=== PATIENT | male | born 1950 | race Caucasian/White ===

== ENCOUNTER → 2017-03-01 | Outpatient (CLI) | payer OTHER ==
--- NOTE | 2017-03-01 15:16 | Diagnostic Imaging Report ---
PROCEDURE: CT urinary tract, rule out kidney stone. TECHNIQUE: Multiple contiguous axial images were obtained through the abdomen and pelvis without the use of intravenous contrast. INDICATION: Abdominal pain. Right flank pain. FINDINGS: The lung bases demonstrate no significant abnormality. The liver, the gallbladder, the spleen, the pancreas and adrenal glands appear unremarkable. The kidneys demonstrate bilateral cystic areas near the renal pelvis on both sides suggestive of parapelvic cysts. No urinary tract stones are seen. Calcifications in the pelvis appears to relate to phleboliths. The abdominal aorta is normal in caliber. No para-aortic significantly enlarged lymph node is seen. There is a tiny fat-containing umbilical hernia. The appendix is normal. There is no bowel obstruction. No inflammatory changes seen. A few colonic diverticula are noted. The urinary bladder demonstrates mild nonspecific wall thickening. The prostate has central calcifications in it with no significant enlargement of its outer contour. The osseous structures demonstrate degenerative changes and suggestion of pars defects at the L5 level. IMPRESSION: 1. No urinary tract stones. Cystic lesions near the renal pelvis more prominent on the left side are favored to be related to parapelvic cysts rather than hydronephrosis. This can be confirmed with a contrast-enhanced study. 2. Tiny fat-containing umbilical hernia. 3. Mild diverticulosis. No diverticulitis. 4. Nonspecific mild thickening in the urinary bladder wall. Consider possibility of cystitis. 5. Suggestion of bilateral L5 pars defects. Dictated by: Dictated on workstation # [id number]
== END ==
LOC: RAD 13:25
PROVIDERS: ATTEND Internal Medicine
DX: K42.9 Umbilical hernia without obstruction or gangrene (principal); N32.9 Bladder disorder, unspecified; R93.8 Abnormal findings on diagnostic imaging of other specified body structures
CPT/HCPCS: 74176

== ENCOUNTER 2018-08-30 10:14 | Outpatient (CLI) | payer OTHER ==
[~2018-08-30] VITALS: Ht 182.9 cm; Wt 115.7 kg
[~2018-08-30 10:14] MED LIST: FLUT1DIS26 IH
== END 2018-08-30 11:55 ==
LOC: PREOP 10:14
PROVIDERS: ATTEND Podiatrist Foot & Ankle Surgery
DX: Z01.818 Encounter for other preprocedural examination (principal)

== ENCOUNTER 2018-09-01 06:10 | Day surgery (SDC) | payer MEDICARE, OTHER ==
[~2018-09-01] VITALS: Ht 182.9 cm; Wt 115.7 kg
--- OUTSIDE RECORDS SUMMARY | 2018-09-01 06:14 | XMS REPORT | Continuity of Care Document ---
Author Author [facility] Address Unknown Phone Unavailable Allergies There is no data. Medications There is no data. Problems Date Dx Coded Attending Type Code Diagnosis Diagnosed By 01/31/2014 CASSANDRA ALVAREZ DDS V72.2 DENTAL EXAMINATION Procedures Code Description Performed By Performed On D0140 LIMIT ORAL EVAL PROBLM FOCUS 01/31/2014 D0220 INTRAORAL PERIAPICAL FIRST F 01/31/2014 D7140 EXTRACTION ERUPTED TOOTH/ EXR 01/31/2014 Results There is no data. Encounters ACCT No. Visit Date/Time Discharge Status Pt. Type Provider Facility Loc./Unit Complaint [id number] 01/31/2014 13:06:00 01/31/2014 23:59:59 CLS Outpatient CASSANDRA ALVAREZ DDS
[2018-09-01] MEDS ORDERED: ceFAZolin INJECTION 1,000 MG in NS (IVPB) 50 ML IV ONE (06:30)
[2018-09-01 06:40] VITALS: BP 140/98
[2018-09-01] MEDS: LACTATED RINGERS 1,000 ML IV PRN ×2 (06:50→08:54)
[2018-09-01] MEDS ORDERED: ONDANSETRON 4 MG/2 ML (SDV) Z0FRAN IV ONE (07:00)
[2018-09-01] MEDS ORDERED: FAMOTIDINE 20MG/2ML IV (PEPCID) IV ONE (07:00)
[2018-09-01] MEDS ORDERED: SCOPOLAMINE 1.5 MG (TRANSDERM-SCOP) PATCH TOP ONE (07:00)
[2018-09-01] MEDS ORDERED: ONDANSETRON 4 MG/2 ML (SDV) Z0FRAN ONE ×2 (07:05→08:32)
[2018-09-01] MEDS ORDERED: FAMOTIDINE 20MG/2ML IV (PEPCID) ONE (07:05)
[2018-09-01] MEDS ORDERED: SCOPOLAMINE 1.5 MG (TRANSDERM-SCOP) PATCH ONE (07:05)
[2018-09-01] MEDS ORDERED: BUPIVACAINE 0.5% 30 ML (SENSORCAINE) VIAL ONE (07:14)
--- NOTE | 2018-09-01 07:23 | Progress Note-Pre Operative ---
Pre-Operative Progress Note H&P Reviewed The H&P was reviewed, patient examined and no changes noted. Date Seen by Provider: Sep 01, 2018 Time Seen by Provider: 07:22 Date H&P Reviewed: Sep 01, 2018 Time H&P Reviewed: 07:22 Pre-Operative Diagnosis: Hallux Valgus, Hypertrophic 2nd metatarsal, Hammertoe 2nd, Right foot GAYATHRI MCFARLAND DPM Sep 01, 2018 07:23
[2018-09-01] MEDS ORDERED: fentaNYL INJECTION 100 MCG/2 ML AMP ONE ×3 (08:00→10:18)
[2018-09-01] MEDS ORDERED: MIDAZOLAM 2 MG/2 ML (VERSED) VIAL ONE (08:00)
[2018-09-01] MEDS ORDERED: SEVOFLURANE (ULTANE) 15 ML INHAL SOLN ONE ×7 (08:32→10:41)
[2018-09-01] MEDS ORDERED: LIDOCAINE PF 2% 5 ML (XYLOCAINE) VIAL ONE (08:32)
[2018-09-01] MEDS ORDERED: proPOfol 200 MG/20 ML (DIPRIVAN) VIAL IV ONE ×2 (08:32)
[2018-09-01] MEDS ORDERED: DEXAMETHASONE 10 MG/ML (DECADRON) 1 ML VIAL ONE ×2 (08:32→10:21)
[2018-09-01] MEDS ORDERED: LACTATED RINGERS 1,000 ML IV ONE (10:42)
[2018-09-01] MEDS ORDERED: HYDROcodone/APAP 5 MG/325 MG (LORTAB) TAB PO PRN (11:15)
[2018-09-01] MEDS ORDERED: LACTATED RINGERS 1,000 ML IV SCH (11:15)
[2018-09-01] MEDS ORDERED: morphine INJ 4 MG/ML 1 ML (VIAL/SYRINGE) IV PRN (11:15)
[2018-09-01] MEDS ORDERED: ONDANSETRON 4 MG/2 ML (SDV) Z0FRAN IVP PRN ×2 (11:15→11:30)
--- NOTE | 2018-09-01 11:15 | Progress Note-Post Operative ---
Post-Operative Progess Note Surgeon (s)/Apprentice Cook (s) Surgeon GAYATHRI MCFARLAND DPM Apprentice Cook: none Pre-Operative Diagnosis Hallux Valgus, Hypertrophic 2nd metatarsal, Hammertoe 2nd, Right foot Post-Operative Diagnosis same Procedure & Operative Findings Date of Procedure 09/01/18 Procedure Performed/Findings Arthrodesis of the 1st metatarsal-cuneiform joint, Obed bunionectomy, 2nd metatarsal osteotomy, reduction of 2nd digit hammertoe, all right Anesthesia Type general Estimated Blood Loss Estimated blood loss (mL): Minimal Specimens/Packing Specimens Removed none GAYATHRI MCFARLAND DPM Sep 01, 2018 11:15
[2018-09-01] MEDS ORDERED: CEPH500C PO (11:18)
[2018-09-01] MEDS ORDERED: ACHD5005 PO (11:18)
[2018-09-01] MEDS ORDERED: morphine INJ 10 MG/ML 1ML (SYR OR VIAL) IVP ONE (11:30)
[2018-09-01] MEDS ORDERED: HYDROmorphone 2 MG/ML VIAL (DILAUDID) IV ONE (11:30)
--- NOTE | 2018-09-01 11:43 | Diagnostic Imaging Report ---
INDICATION: Right foot surgery. TIME OF EXAM: 11:24 a.m. FINDINGS: Two views of the right foot demonstrate a K wire extending through the second toe. There is a fully threaded screw through the distal second metatarsal. Lucency extends transversely through the distal shaft of the second metatarsal, consistent with fracture line or osteotomy. There are also postsurgical changes to the proximal phalanx of the great toe. Plate and screws transfix the first MTP joint. Overall alignment appears to be anatomic. IMPRESSION: Postsurgical changes, as described. Dictated by: Dictated on workstation # [id number]
[2018-09-01 12:10] VITALS: BP 135/98
[2018-09-01 12:40] VITALS: BP 132/85
--- NOTE | 2018-09-01 12:50 | Physical Therapy Progress Note ---
Therapy Progress Note PT in for assessment. Spouse reports established knee scooter and crutches prior to surgery. Good family support/assistance at home if needed. Patient and spouse declined PT intervention and voice comfort with all mobility/needs at home. No skilled PT indicated. 1 visit KRYSTLE BOLANOS PT Sep 01, 2018 12:50
[2018-09-01 13:10] VITALS: BP 134/88
--- NOTE | 2018-09-01 13:45 | Diagnostic Imaging Report ---
INDICATION: Fluoroscopy during right foot surgery. FINDINGS: Fluoroscopy was provided in the OR for Dr. Saavedra. 10 seconds of fluoroscopy was utilized. Images demonstrate a medial plate and screws transfixing the first tarsal/metatarsal joint. There is a K wire extending through the distal first metatarsal. A screw extends through the first MTP joint as well. The hardware appears intact. The alignment is anatomic. IMPRESSION: Fluoroscopy during right foot surgery. Dictated by: Dictated on workstation # [id number]
[2018-09-01 14:10] VITALS: BP 133/86
--- NOTE | 2018-09-01 14:37 | Anesthesia-General Post-Op ---
General Patient Condition Mental Status/LOC: Same as Preop Cardiovascular: Satisfactory Nausea/Vomiting: Absent Respiratory: Satisfactory Pain: Controlled Complications: Absent Post Op Complications Complications None Follow Up Care/Instructions Patient Instructions None needed. Anesthesia/Patient Condition Patient Condition Patient is doing well, no complaints, stable vital signs, no apparent adverse anesthesia problems. No complications reported per nursing. D/C home per [facility] Criteria: Yes CONSTANCE TUTTLE CRNA Sep 01, 2018 14:37
--- NOTE | 2018-09-01 23:13 | OPERATIVE REPORT ---
DATE OF SERVICE: 09/01/2018 SURGEON: Cheryl Mcfarland DPM. PREOPERATIVE DIAGNOSES: 1. Hallux abductovalgus metatarsal primus varus, right foot. 2. Hypertrophic second metatarsal, right foot. 3. Hammer digit syndrome, right second digit. 4. Hypertrophic second metatarsal, right. 5. Hammer digit syndrome, right second digit. POSTOPERATIVE DIAGNOSES: 1. Hallux abductovalgus metatarsal primus varus, right foot. 2. Hypertrophic second metatarsal, right foot. 3. Hammer digit syndrome, right second digit. 4. Hypertrophic second metatarsal, right. 5. Hammer digit syndrome, right second digit. 6. Some elevatus to the first metatarsal. PROCEDURE: 1. Arthrodesis, right first metatarsal medial cuneiform joint. 2. Obed bunionectomy, right. 3. Second metatarsal osteotomy, right. 4. Reduction of hammertoe, right second digit. WOUND CLASS: Clean. ANESTHESIA: General. HEMOSTASIS: Pneumatic thigh tourniquet at 300 mmHg. INDICATIONS: This 68-year-old male presents complaining of a painful bunion, right foot as well as a Hammer digit. Conservative therapy has met with unsatisfactory results and the patient is agreeable to surgical intervention after risks and complications were discussed at length. No guarantees were extended to the patient and he is willing to proceed. DESCRIPTION OF PROCEDURE: The patient was brought back to the operating table, placed in secure supine position. A general anesthetic was then induced. Appropriate timeout was performed. Pneumatic thigh tourniquet was placed on the right lower extremity over several layers padding. The right foot was then prepped and draped in the normal sterile manner. The right foot was then elevated, allowed to exsanguinate after which the tourniquet was inflated to 250 mmHg. Attention was then directed to the dorsal aspect of the right first metatarsal cuneiform joint area where a 4 cm longitudinal linear incision was created. The incision was deepened in the same plane with great care to identify and retract all vital neurovascular structures. All the necessary blood vessels were cauterized as encountered. The incision was deepened down to the capsular tissue where a longitudinal capsulotomy was performed and the capsular tissue reflected. Next, utilizing a power sagittal saw, the base of the first metatarsal was resected perpendicular to the long axis of the first metatarsal. Next, utilizing a power sagittal saw, the distal portion of the medial cuneiform was resected removing the articular cartilage perpendicular to the long axis of the second metatarsal. Once the articular cartilage was removed, the ends of the raw bone were fenestrated with a 0.062 smooth K wire. Once this was performed, the first metatarsal was placed in appropriate alignment and alignment was confirmed with intraoperative C-arm for reduction of the first intermetatarsal angle for reduction of the elevated first metatarsal and rotation of the first metatarsal. The wound was flushed with copious amounts of normal saline. A guidewire was driven from a distal dorsal to the base of the first metatarsal across the arthrodesis site into the medial cuneiform. Again, placement was confirmed by C-arm after which a 3.5 headless cannulated screw of 38 mm of length was then placed. Next, a medium plantar arm Lapidus plate was applied to the medial aspect of the arthrodesis site for the first metatarsal cuneiform joint. A 2.7 locking screws were placed, 2 proximal screws were 14 and 18 mm of length. The two distal screws were 16 and 18 mm of length. The products were [employer] product. Excellent reduction of the misalignment of the right first metatarsal was appreciated at this time and confirmed by C-arm. The wound was flushed with copious amounts of normal saline. Closure was performed in layers. Deep closure was performed with 3-0 Vicryl, superficial with 4-0 Vicryl, skin closed with 4-0 Prolene in a horizontal mattress type stitch. Attention was then directed to the lateral deviation of the right hallux with a medial eminence of the first metatarsal head. A 3 cm longitudinal linear incision was created overlying the first metatarsophalangeal joint, deepened in the same plane with great care to identify and retract all vital neurovascular structures. All the necessary blood vessels were cauterized as encountered. The incision was deepened down to the first metatarsophalangeal joint where a longitudinal capsulotomy was performed. Capsule tissue was reflected showing the medial eminence to the first metatarsal head, which was resected utilizing a power sagittal saw. The dorsal portion of the first metatarsal head was also reduced and smooth utilizing a power bur. Next, blunt dissection was carried out into the first intermetatarsal space where a lateral release was performed. The conjoint tendon of the adductor hallucis was released as well as a lateral capsulorrhaphy. Attention was then directed to the diaphysis of the proximal phalanx of the right hallux where an Obed type osteotomy was performed. Subperiosteal dissection was carried out after which a wedge of bone was resected with the base medial and the lateral cortices held intact. Once the wedge of bone was removed, the gap was closed reducing the malalignment of the right hallux. Two captain airline pilot holes, which was created to the dorsal medial aspect of the osteotomy after which a 28-gauge monofilament wire was then passed through the captain airline pilot hole securing the osteotomy in a closed position. Excellent alignment and fixation was appreciated at this time. The wound was flushed with copious amounts of normal saline. Closure was then performed in layers. Deep closure was performed with 3-0 Vicryl, superficial with 4-0 Vicryl, skin closed with 4-0 Prolene in a horizontal mattress type stitch. Attention was then directed to the dorsal aspect of the right second ray where a 4 cm longitudinal linear incision was created from the surgical neck of the second metatarsal to the distal interphalangeal joint of the right second toe. The incision was deepened in the same plane with great care to identify and retract all vital neurovascular structures. All the necessary blood vessels were cauterized as encountered. The incision was deepened down to the extensor tendon where a Z slide lengthening was performed. The extensor tendon was reflected proximally and the extensor thornton released. The first metatarsophalangeal joint capsule was released with a release of the medial and lateral collateral ligaments. This allowed the proximal phalanx to come down into a more rectus alignment. Next, attention was directed to the dorsal aspect of the surgical neck of the second metatarsal where an oblique osteotomy from dorsal to plantar was created from distal lateral to proximal medial. Once the cut was performed this allowed the capital fragment to translocate proximally and medially. It was fixated in its corrected position utilizing a snap-off screw of 2.0 mm width and 14 mm in length from the distal medial aspect of the capital fragment perpendicular to the osteotomy. Excellent bony apposition and fixation was appreciated at this time. The wound was flushed with copious amounts of normal saline. Attention was then directed to the right second digit where a capsulotomy was performed to the proximal interphalangeal joint. The head of the proximal phalanx was fashioned into a peg utilizing a power sagittal saw and power tawnya and a bur was utilized to create a hole in the base of the middle phalanx. This allowed for the peg-in-hole arthrodesis of the right second toe proximal interphalangeal joint. Excellent bony apposition was appreciated at this time and is fixated in its corrected position utilizing a 0.062 smooth K wire. The K-wire extending out the end of the toe was cut and a protective ball placed over the end of the wire. Tourniquet was released noting appropriate capillary refill to all digits of the right foot. Closure was then performed in layers where the deep closure was performed with 3-0 Vicryl to the right second ray followed by superficial closure with 4-0 Vicryl and followed by 4-0 Prolene for skin closure in a horizontal mattress type stitch. A postoperative injection consisted of 20 mL of 0.5% Marcaine injected in a local infusion to the surgical site. 10 mg of dexamethasone was also injected into the first intermetatarsal space, right foot. Postoperative dressing consisted of Betadine soaked Adaptic, sterile 4 x 4, sterile Kerlix all secured with a Coban wrap. The patient tolerated the anesthesia and procedure well and was transported from the operating room to the recovery area with vital signs stable and vascular status intact to all digits of the right foot. The patient is to follow up in my office in 10 days' period of time. He was given a prescription for Keflex and Vicodin. Job ID: [id number] DocumentID: [id number] Dictated Date: 09/01/2018 11:30:53 Roving Or Yarn Color Checker Date: 09/01/2018 23:13:07 Dictated By: CHERYL MCFARLAND DPM
== END 2018-09-01 14:10 | disposition home or self-care (01) ==
LOC: SDC 06:10
PROVIDERS: ATTEND Podiatrist Foot & Ankle Surgery
DX: M20.11 Hallux valgus (acquired), right foot (principal); M89.371 Hypertrophy of bone, right ankle and foot; M20.41 Other hammer toe(s) (acquired), right foot; J45.909 Unspecified asthma, uncomplicated; M19.91 Primary osteoarthritis, unspecified site; E66.09 Other obesity due to excess calories; Z68.34 Body mass index [BMI] 34.0-34.9, adult; Z79.899 Other long term (current) drug therapy
CPT/HCPCS: 73620; 87081

== ENCOUNTER → 2020-09-10 | Outpatient (CLI) | payer MEDICARE, OTHER ==
[~2020-09-10] MED LIST changes: +ACHD5005 PO; +CEPH500C PO
--- NOTE | 2020-09-10 14:51 | Diagnostic Imaging Report ---
HISTORY: Pain in left shoulder, trauma four months ago. COMPARISON: None. TECHNIQUE: Two views of the left shoulder. FINDINGS: Bony structures appear generally osteopenic. Alignment is normal. There are mild degenerative changes in the glenohumeral and acromioclavicular joints. No acute fracture is seen. IMPRESSION: 1. Mild degenerative changes in the left shoulder with no acute osseous abnormality seen. Dictated by: Dictated on workstation # [id number]
== END ==
LOC: RAD FS 13:47
PROVIDERS: ATTEND Nurse Practitioner Family
DX: M19.012 Primary osteoarthritis, left shoulder (principal)
CPT/HCPCS: 73030

== ENCOUNTER → 2022-02-12 | Outpatient (CLI) | payer MEDICARE, OTHER ==
[2022-02-12 09:32] LABS: BASOPHILS # (AUTO) 0.1 10^3/uL (0.0-0.1); BASOPHILS % (AUTO) 1 % (0-10); EOSINOPHILS # (AUTO) 0.2 10^3/uL (0.0-0.3); EOSINOPHILS % (AUTO) 2 % (0-10); HEMATOCRIT 48 % (40-54); HEMOGLOBIN 16.2 g/dL (13.3-17.7); LYMPHOCYTES # (AUTO) 1.7 10^3/uL (1.0-4.0); LYMPHOCYTES % (AUTO) 12 % (12-44); MEAN CORPUSCULAR HEMOGLOBIN 30 pg (25-34); MEAN CORPUSCULAR HGB CONC 34 g/dL (32-36); MEAN CORPUSCULAR VOLUME 89 fL (80-99); MEAN PLATELET VOLUME 9.6 fL (9.0-12.2); MONOCYTES # (AUTO) 1.5 10^3/uL (0.0-1.0); MONOCYTES % (AUTO) 10 % (0-12); NEUTROPHILS # (AUTO) 11.1 10^3/uL (1.8-7.8); NEUTROPHILS % (AUTO) 76 % (42-75); PLATELET COUNT 250 10^3/uL (130-400); WHITE BLOOD COUNT 14.6 10^3/uL (4.3-11.0)
[2022-02-12 09:57] LABS: BAND NEUTROPHILS 0 %; BASOPHILS % (MANUAL) 0 %; EOSINOPHILS % (MANUAL) 0 %; LYMPHOCYTES % (MANUAL) 14 %; MONOCYTES % (MANUAL) 16 %; NEUTROPHILS % (MANUAL) 70 %
[2022-02-12 09:59] LABS: BILIRUBIN,TOTAL 0.5 MG/DL (0.1-1.0); BUN/CREATININE RATIO 19; CALCIUM 9.3 MG/DL (8.5-10.1); CARBON DIOXIDE 23 MMOL/L (21-32); CHLORIDE 100 MMOL/L (98-107); CREATININE SERUM 0.84 MG/DL (0.60-1.30); GFR ESTIMATED 94; GLUCOSE 108 MG/DL (70-105); POTASSIUM 4.2 MMOL/L (3.6-5.0); SODIUM 134 MMOL/L (135-145)
[2022-02-12 10:00] LABS: ALANINE AMINOTRANSFERASE 32 U/L (0-55); ALBUMIN 3.9 GM/DL (3.2-4.5); ALKALINE PHOSPHATASE 113 U/L (40-136); TOTAL PROTEIN 7.3 GM/DL (6.4-8.2)
== END ==
LOC: LAB FS 09:13
PROVIDERS: ATTEND Nurse Practitioner Family
DX: I49.9 Cardiac arrhythmia, unspecified (principal); I49.3 Ventricular premature depolarization
CPT/HCPCS: 36415; 80053; 83880; 84484; 85007; 85027